=== PATIENT | female | born 1970 | race Caucasian/White ===

== ENCOUNTER 2025-04-10 19:36 | Outpatient (CLI) | payer MEDICARE, SELFPAY | END 2025-04-10 19:37 | disposition home or self-care (01) | LOC: SLEEP 19:36 | PROVIDERS: Visit Provider Internal Medicine | DX: G47.33 Obstructive sleep apnea (adult) (pediatric) (principal); G47.10 Hypersomnia, unspecified | CPT/HCPCS: 95810 ==